=== PATIENT | female | born 1965 ===

== ENCOUNTER 2018-09-13 13:06 | Emergency (ER) | payer OTHER ==
--- NOTE | 2018-09-13 13:41 | UC ---
Complaint Female HPI - HPI Summary HPI Summary: 53-year-old female presents with onset of dysuria, frequency, and urgency yesterday. Associated with some suprapubic pressure, mild back pain, and chills. Denies fever, nausea, vomiting, hematuria, vaginal discharge, abnormal vaginal bleeding, dyspareunia. - History Of Current Complaint Chief Complaint: UCGU Stated Complaint: UTI Time Seen by Provider: 09/13/18 13:20 Hx Obtained From: Patient Hx Last Menstrual Period: irreg. Pain Intensity: 0 - Allergies/Home Medications Allergies/Adverse Reactions: Allergies Allergy/AdvReac Type Severity Reaction Status Date / Time No Known Allergies Allergy Verified 09/13/18 13:17 Home Medications: Home Medications Levothyroxine TAB* [Synthroid TAB*] 75 mcg PO DAILY 09/13/18 [History Confirmed 09/13/18] Liothyronine TAB* [Cytomel TAB*] 5 mcg PO BID 09/13/18 [History Confirmed ] Pumpkin Seed Extract/Soy Germ [Azo Bladder Control Capsule] 300 mg PO ONCE 09/13 [History Confirmed 09/13/18] PMH/Surg Hx/FS Hx/Imm Hx Previously Healthy: Yes Endocrine History: Thyroid Disease - Surgical History Surgical History: Yes Surgery Procedure, Year, and Place: ovarian cyst removal 2006 - Family History Known Family History: Positive: Non-Contributory - Social History Occupation: Employed Full-time Lives: With Family Alcohol Use: Occasionally Substance Use Type: None Smoking Status (MU): Never Smoked Tobacco Review of Systems All Other Systems Reviewed And Are Negative: Yes Constitutional: Positive: Chills. Negative: Fever Skin: Positive: Negative Respiratory: Positive: Negative Cardiovascular: Positive: Negative Gastrointestinal: Positive: Abdominal Pain - Suprapubic. Negative: Vomiting, Nausea Genitourinary: Positive: Dysuria, Frequency, Urgency. Negative: Hematuria, Vaginal/Penile Discharge, Abnormal Bleeding Musculoskeletal: Positive: Negative Neurological: Positive: Negative Is Patient Immunocompromised?: No Physical Exam - Summary Physical Exam Summary: GENERAL APPEARANCE: Well developed, well nourished, alert and cooperative, and appears to be in no acute distress. CARDIAC: Normal S1 and S2. No S3, S4 or murmurs. Rhythm is regular. There is no peripheral edema, cyanosis or pallor. Extremities are warm and well perfused. Capillary refill is less than 2 seconds. Peripheral pulses intact. LUNGS: Clear to auscultation without rales, rhonchi, wheezing or diminished breath sounds. ABDOMEN: Positive bowel sounds. Soft, nondistended. Mild suprapubic tenderness without guarding or rebound. No masses or hepatosplenomegally. No CVA tenderness. MUSKULOSKELETAL: ROM intact to all extremities. No joint erythema or tenderness. Normal muscular development. Normal gait. SKIN: Skin normal color, texture and turgor with no lesions or eruptions. Triage Information Reviewed: Yes Vital Signs: Initial Vital Signs Temp 98.8 F 09/13/18 13:19 Pulse 69 09/13/18 13:19 Resp 16 09/13/18 13:19 BP 112/77 09/13/18 13:19 Pulse Ox 98 09/13/18 13:19 Vital Signs Reviewed: Yes Complaint Female Dx - Course Course Of Treatment: 53-year-old female presents with onset of dysuria, frequency, and urgency yesterday. Associated with some suprapubic pressure, mild back pain, and chills. Denies fever, nausea, vomiting, hematuria, vaginal discharge, abnormal vaginal bleeding, dyspareunia. Afebrile. Vital signs stable. Patient had some mild suprapubic tenderness but otherwise unremarkable exam. We were unable to perform a [id number] urinalysis as the patient had taken Azo. A urine culture was sent. Based on her symptoms will treat her empirically for a UTI with Bactrim DS 1 tablet twice a day for 5 days. Recommending that she continue to use the Azo over the next 2 days for comfort. She is to follow-up with her primary care provider in 3-5 days if symptoms are not improving. Anticipatory guidance and warning symptoms reviewed with the patient. Verbalizes understanding and agrees with plan of care. - Differential Dx/Diagnosis Provider Diagnosis: UTI (urinary tract infection) Discharge - Sign-Out/Discharge Documenting (check all that apply): Patient Departure All imaging exams completed and their final reports reviewed: No Studies - Discharge Plan Condition: Stable Disposition: HOME Prescriptions: Sulfamethox/Trimethoprim DS* [Bactrim DS 800/160 TAB*] 1 tab PO BID #10 tab Patient Education Materials: Urinary Tract Infection in Women (ED) Referrals: No Primary Care Phys,NOPCP [Primary Care Provider] - Additional Instructions: We were unable to perform a urine test in the clinic because of the Azo. Based on your symptoms we will start you on an antibiotic to treat for a likely urinary tract infection. We will also send a urine culture today to see if any bacteria grow out and make sure the antibiotic you were prescribed is appropriate to treat the infection. It will take 48-72 hours to get these results. We will contact you if there is any change in your treatment plan. Start Bactrim DS 1 tablet twice daily for 5 days. You may continue to use the Azo according to directions to help with the discomfort. Do not use for more than 2 days. Drink plenty of fluids. To help prevent urinary tract infections: 1) Be sure to wipe from front to back. 2) Urinate immediately after any sexual intercourse. 3) Avoid taking bubble baths. Follow up with your primary care provider in 3-5 days if symptoms persist. Seek immediate medical attention in the emergency room if you develop fever greater than 100.5 F, have severe abdominal pain, persistent vomiting, or any worsening of symptoms. - Billing Disposition and Condition Condition: STABLE Disposition: Home - Attestation Statements Provider Attestation: I was available for consult. This patient was seen by the PAYTON. The patient was not presented to, seen by, or examined by me. -Sandra
--- NOTE | 2018-09-15 15:23 | UC ---
- Progress Note Progress Note: Urine culture with no growth If feeling better - may continue anbx If not feeling better - stop anbx and be rechecked by PCP Course/Dx - Diagnoses Provider Diagnoses: UTI (urinary tract infection) Discharge - Sign-Out/Discharge Documenting (check all that apply): Post-Discharge Follow Up All imaging exams completed and their final reports reviewed: No Studies - Discharge Plan Condition: Stable Disposition: HOME Prescriptions: Sulfamethox/Trimethoprim DS* [Bactrim DS 800/160 TAB*] 1 tab PO BID #10 tab Patient Education Materials: Urinary Tract Infection in Women (ED) Referrals: No Primary Care Phys,NOPCP [Primary Care Provider] - Additional Instructions: We were unable to perform a urine test in the clinic because of the Azo. Based on your symptoms we will start you on an antibiotic to treat for a likely urinary tract infection. We will also send a urine culture today to see if any bacteria grow out and make sure the antibiotic you were prescribed is appropriate to treat the infection. It will take 48-72 hours to get these results. We will contact you if there is any change in your treatment plan. Start Bactrim DS 1 tablet twice daily for 5 days. You may continue to use the Azo according to directions to help with the discomfort. Do not use for more than 2 days. Drink plenty of fluids. To help prevent urinary tract infections: 1) Be sure to wipe from front to back. 2) Urinate immediately after any sexual intercourse. 3) Avoid taking bubble baths. Follow up with your primary care provider in 3-5 days if symptoms persist. Seek immediate medical attention in the emergency room if you develop fever greater than 100.5 F, have severe abdominal pain, persistent vomiting, or any worsening of symptoms. - Billing Disposition and Condition Condition: STABLE Disposition: Home - Attestation Statements Provider Attestation: I was available for consult. This patient was seen by the PAYTON. The patient was not presented to, seen by, or examined by me. -Sandra
== END 2018-09-13 13:48 | disposition home or self-care (01) ==
LOC: UCEAST 13:06
DX: N39.0 Urinary tract infection, site not specified (principal); E07.9 Disorder of thyroid, unspecified
CPT/HCPCS: 87086; 99202; G0463